=== PATIENT | female | born 1955 | race Caucasian/White ===

== ENCOUNTER 2016-08-20 11:26 | Inpatient (IN) | payer MEDICARE, MEDICAID ==
[~2016-08-20] VITALS: Ht 154.9 cm; Wt 58.4 kg
[2016-08-20 12:18] LABS: APPEARANCE CLOUDY (CLEAR); BACTERIA MANY /hpf (NONE SEEN); BILIRUBIN NEGATIVE (NEGATIVE); COLOR DK YELLOW (YELLOW); GLUCOSE NEGATIVE (NEGATIVE); KETONE SMALL mg/dL (NEGATIVE); LEUKOCYTE ESTERASE 1+ (NEGATIVE); NITRITE POSITIVE (NEGATIVE); PROTEIN 2+ mg/dL (NEGATIVE); RED CELLS - URINE 25-50 /hpf (0-5); UROBILINOGEN NORMAL (NORMAL); WHITE CELLS - URINE >50 /hpf (0-5)
[2016-08-20 15:21] LABS: HEMATOCRIT 34.8 % (36.0-48.0); MCH 32.3 pg (26.0-34.0); MCHC 34.5 g/dL (31.0-37.0); MCV 93.8 fL (80.0-100.0); PLATELET COUNT 293 10x3/uL (130-400); RBC 3.71 10x6/uL (4.00-5.40); RDW 15.1 % (11.5-14.5); WBC 27.7 10x3/uL (4.8-10.8)
[2016-08-20 15:37] LABS: ALBUMIN 3.1 g/dL (3.4-5.0); ANION GAP 16.7 mmol/L (8-16); BILIRUBIN - TOTAL 0.69 mg/dL (0.2-1.3); CALCIUM 8.6 mg/dL (8.5-10.1); CARBON DIOXIDE 23.7 mmol/L (21.0-32.0); CREATININE - SERUM 1.6 mg/dL (0.6-1.3); POTASSIUM - SERUM 3.4 mmol/L (3.5-5.1); PROTEIN - SERUM 6.1 g/dL (6.4-8.2)
[2016-08-20 15:50] LABS: EOSINOPHILS 1 % (0-7); LYMPHOCYTES 9 % (15-50); MONOCYTES 1 % (2-11); NEUTROPHILS 85 % (40-80); PLATELET ESTIMATE NORMAL
--- NOTE | 2016-08-20 17:56 | NUR ---
RECEIVED TO FLOOR VIA WHEELCHAIR WITH IV FLUIDS GOING TO LEFT HAND. DENIES NEEDS AT PRESENT TIME. SUPPER TRAY HERE AND STARTING TO EAT. LEVAQUIN IV ALSO INFUSING.
[2016-08-20] MEDS ORDERED: MOBIC7.5 MG PO ×2 (17:59→18:03)
[2016-08-20] MEDS ORDERED: TAMIFLU75 MG PO (17:59)
[2016-08-20] MEDS ORDERED: HYDROCODONE-APA1 TAB PO (18:00)
[2016-08-20] MEDS ORDERED: ATIVAN1 MG (18:01)
[2016-08-20] MEDS ORDERED: GABAPENTIN100 MG PO (18:02)
[2016-08-20] MEDS ORDERED: STRATTERA40 MG (18:03)
[2016-08-20] MEDS ORDERED: VALTREX1000 MG (18:03)
--- NOTE | 2016-08-20 18:31 | NUR ---
PT RESTING ON EDGE OF BED. BP 83/60. ALL OTHER VITALS STABLE. CALLED [employer] COUNTERPERSON DOCTOR AND WAITING FOR CALL BACK.
--- NOTE | 2016-08-20 19:38 | NUR ---
PT STATES SHE WAS ON TAMIFLU FOR FLU LIKE SYMPTOMS BUT TESTED NEGATIVE. NOTIFIED DOCTOR AND WILL RETEST PT AND CONTINUE TAMIFLU PREVIOUSLY PRESCRIBED SHE IS ON DAY 3/5 TAKING IT BID. WILL GOWN UP PRECAUTION UNTIL WE KNOW FOR SURE.
--- NOTE | 2016-08-20 20:00 | NUR ---
NEW ORDERS REC'D AND PLACED IN CHART. PT RESTING QUIETLY IN BED. DENIES ANY CURRENT NEEDS. WILL CONTINUE WITH NEW ORDERS.
[2016-08-20 21:00] VITALS: BP 91/55
[2016-08-20 21:08] VITALS: BP 91/55; BMI 15.8
[2016-08-21] VITALS (7 sets, daily range): BP systolic 81–102; BP diastolic 42–58; Ht 154.9 cm; Wt 58.4 kg
--- NOTE | 2016-08-21 04:59 | NUR ---
PT RESTING WITHOUT C/O OR DISTRESS NOTED. CALL LIGHT WITHIN REACH. WILL CONT TO MONITOR.
--- NOTE | 2016-08-21 07:00 | NUR ---
RECEIVED REPORT. ASSUMED CARE OF PATIENT. RESTING WITH EYES OPEN. ALERT/ORIENTED. RESP EVEN AND UNLABORED. NO DISTRESS. PATIENT REPORTS CHRONIC BACK PAIN, HOWEVER PATIENT STATES SHE FEELS BETTER TODAY.
--- NOTE | 2016-08-21 10:06 | NUR ---
REFUSED TAMIFLU AT THIS TIME. NO DISTRESS.
[2016-08-21 12:03] LABS: BASOPHILS 0 % (0.0-2.0); EOSINOPHILS 0 % (0-7); HEMATOCRIT 33.5 % (36.0-48.0); HEMOGLOBIN 11.3 g/dL (12-16); IMMATURE GRANULOCYTES 0.5 % (0-5); LYMPHOCYTES 4.4 % (15-50); MCH 31.9 pg (26.0-34.0); MCHC 33.7 g/dL (31.0-37.0); MCV 94.6 fL (80.0-100.0); MEAN PLATELET VOLUME 10.2 fL (7.4-10.4); NEUTROPHILS 89.1 % (40-80); PLATELET COUNT 270 10x3/uL (130-400); RBC 3.54 10x6/uL (4.00-5.40); RDW 15.3 % (11.5-14.5); WBC 22.2 10x3/uL (4.8-10.8)
--- NOTE | 2016-08-21 12:09 | NUR ---
MEDICATED FOR BACK PAIN AT THIS TIME. NO DISTRESS.
[2016-08-21 12:10] LABS: ANION GAP 12.3 mmol/L (8-16); CALCIUM 8.2 mg/dL (8.5-10.1); CARBON DIOXIDE 24.9 mmol/L (21.0-32.0); CREATININE - SERUM 1.4 mg/dL (0.6-1.3); POTASSIUM - SERUM 4.2 mmol/L (3.5-5.1)
--- NOTE | 2016-08-21 12:17 | NUR ---
MANUAL BP 102/58
[2016-08-21 13:40] LABS: % SATURATION 6 % (15-55); IRON 10 ug/dl (35-150); TOTAL IRON BIND CAPACITY 151 ug/dl (260-445); UNSAT IRON BIND CAPACITY 141 ug/dl (150-375)
--- NOTE | 2016-08-21 14:02 | NUR ---
SCDS APPLIED TO BILATERAL LOWER EXTREMITIES AND TELEMETRY APPLIED.
--- NOTE | 2016-08-21 18:41 | NUR ---
1814 20 GUAGE TO LEFT WRIST FOUND TO BE INFILTRATED AFTER PATIENT PULLED IV WHILE USING RESTROOM. 20 GAUGE REMOVED FROM LEFT WRIST, CATHETER TIP INTACT. 4X4 GAUZE APPLIED AND SECURED WITH TAPE. NO BLEEDING FROM SITE. 22 GAUGE IV PLACED TO RIGHT FOREARM X 1 STICK. GOOD BLOOD RETURN, EASY FLUSH. TAPED, DATED AND SECURED. IV ABX INFUSING AT THIS TIME. NO DISTRESS. CALL LIGHT WITHIN REACH.
--- NOTE | 2016-08-21 20:26 | NUR ---
RESTING IN BED WATCHING TV. ALERT ORIENTED CONVERSANT. DENIES NEEDS. NO ACUTE DISTRESS NOTED
--- NOTE | 2016-08-21 23:59 | NUR ---
PT LAYING IN BED EYES CLOSED NO DISTRESS OBSERVED CALL LIGHT IN REACH SRX2 BED LOW AND LOCKED WILL MONITOR
[2016-08-22 00:10] VITALS: BP 83/48
[2016-08-22 04:20] VITALS: BP 91/60
--- NOTE | 2016-08-22 07:00 | NUR ---
RECEIVED REPORT. ASSUMED CARE OF PATIENT. CALL LIGHT WITHIN REACH. RESTING WITH EYES OPEN, STATES SHE FEELS BETTER THIS MORNING. RESP EVEN AND UNLABORED. NO DISTRESS.
[2016-08-22 07:35] VITALS: BP 99/55
[2016-08-22 07:57] LABS: BASOPHILS 0.1 % (0.0-2.0); EOSINOPHILS 0.1 % (0-7); HEMATOCRIT 36.4 % (36.0-48.0); HEMOGLOBIN 12.3 g/dL (12-16); IMMATURE GRANULOCYTES 0.3 % (0-5); LYMPHOCYTES 5.3 % (15-50); MCHC 33.8 g/dL (31.0-37.0); MCV 94.8 fL (80.0-100.0); MEAN PLATELET VOLUME 10.9 fL (7.4-10.4); MONOCYTES 5.2 % (2-11); PLATELET COUNT 306 10x3/uL (130-400); RBC 3.84 10x6/uL (4.00-5.40); RDW 15.7 % (11.5-14.5); WBC 17.8 10x3/uL (4.8-10.8)
[2016-08-22 08:00] VITALS: BP 94/53
[2016-08-22 08:08] LABS: ANION GAP 14.5 mmol/L (8-16); CARBON DIOXIDE 24.5 mmol/L (21.0-32.0)
--- NOTE | 2016-08-22 09:38 | NUR ---
MEDICATED FOR PAIN AT THIS TIME. NO DISTRESS.
[2016-08-22 11:20] VITALS: BP 97/57
[2016-08-22 15:28] VITALS: BP 104/65
--- NOTE | 2016-08-22 16:47 | NUR ---
RESTING WELL IN BED WITH EYES OPEN. CALL LIGHT WITHIN REACH. DENIES NEEDS AT THIS TIME. NO ACUTE DISTRESS.
--- NOTE | 2016-08-22 19:18 | NUR ---
MEDICATED FOR PAIN AT THIS TIME. NO DISTRESS.
--- NOTE | 2016-08-22 19:30 | NUR ---
ASSESSMENT COMPLETE, DENIES NEEDS AT THIS TIME. HOB UP SR UP X2, C/L IN REACH. RESP UNLAB ON ROOM AIR, TELEMETRY SHOWING HR SR. WEARING BILAT SCDS TO LOWER LEGS, UP WITH MIN ASSIST. KINSEY WELL. CONTINUE TO MONITOR.
[2016-08-23] VITALS: BP 107/56
--- NOTE | 2016-08-23 00:13 | NUR ---
EYES CLOSED, RESP UNLAB WITH NO S/S OF ACUTE DISTRESS NOTED. C/L IN REACH.
[2016-08-23 06:27] LABS: BASOPHILS 0.2 % (0.0-2.0); EOSINOPHILS 0 % (0-7); HEMATOCRIT 34.6 % (36.0-48.0); HEMOGLOBIN 11.6 g/dL (12-16); IMMATURE GRANULOCYTES 0.6 % (0-5); LYMPHOCYTES 9.6 % (15-50); MCH 31.2 pg (26.0-34.0); MCHC 33.5 g/dL (31.0-37.0); MEAN PLATELET VOLUME 10.6 fL (7.4-10.4); MONOCYTES 11.7 % (2-11); NEUTROPHILS 77.9 % (40-80); PLATELET COUNT 316 10x3/uL (130-400); RBC 3.72 10x6/uL (4.00-5.40); RDW 15.3 % (11.5-14.5); WBC 14.8 10x3/uL (4.8-10.8)
[2016-08-23 06:52] LABS: CALC OSMOLALITY 279 mosm/kg (275-300); CARBON DIOXIDE 24.4 mmol/L (21.0-32.0); CHLORIDE - SERUM 104 mmol/L (98-107); CREATININE - SERUM 0.8 mg/dL (0.6-1.3); GLUCOSE 108 mg/dL (74-106); POTASSIUM - SERUM 3.5 mmol/L (3.5-5.1); SODIUM 138 mmol/L (136-145); UREA NITROGEN 21 mg/dL (7-18); eGFR NON AFRICAN AMERICAN 77 mL/min (90-120)
--- NOTE | 2016-08-23 07:22 | NUR ---
AM ROUNDING- PT LAYING IN BED ON BACK WITH EYES CLOSED RESTING. SCDS ARE ON. ON MONITOR SHOWING SR, HR 86. ON ROOM AIR. IV SEEN TO RIGHT FOREARM, SALINE LOCKED AND PATENT. PER REPORT FROM INSTRUCTIONAL PARAPROFESSIONAL NURSE, MAE PT IS UP AD ABDIRASHID AND ALERT AND ORIENTED. NO NEED AT CURRENT TIME. WILL CONTINUE TO MONITOR.
[2016-08-23 08:45] VITALS: BP 103/58
--- NOTE | 2016-08-23 12:11 | NUR ---
Patient Name: JONH HAILE Admission Status: ER Accout number: [id number] Admission Date: 08-20-2016 : 1955 Admission Diagnosis: Pyelnophritis Attending: YOLANDA Current LOS: 3 Anticipated DC Date: 08-23-2016 Planned Disposition: Home Primary Insurance: [employer] MEDICARE ADV Discharge Planning Comments: Cm met with patient to discuss dc plans/needs. Patient gave consent for cm to discuss dc plans. Patient reports she lives at home with her fianc . She reports she is independent in her care at home. She occasionally uses a walker for ambulatory aide due to chronic back problems. She denied use of community resources at home. She reports her fianc will be transporting her home at discharge. She denied discharge needs at this time. She feels discharging home is a safe discharge. Cm encouraged patient to contact cm if needs arise. Cm will continue to follow and assist as needed with dc plans. [employer]: Merle Gonzalez RN, CCM Is the patient Alert and Oriented? Yes * How many steps to enter\exit or inside your home? 2 * PCP Dr. Garay * Pharmacy [facility] * Preadmission Environment Home with Family * ADLs Independent * Equipment Cane * List name and contact numbers for known caregivers / representatives who currently or will assist patient after discharge: Sri Mccullough- [facility] - [phone] * Community resources currently utilized None * Additional services required to return to the preadmission environment? No * Can the patient safely return to the preadmission environment? Yes * Has this patient been hospitalized within the prior 30 days at any hospital? No
--- NOTE | 2016-08-23 12:22 | NUR ---
Important Medicare Message provided explained, and signed by the patient. Copy left for patient and signed form placed in patient's chart. Merle Gonzalez RN, CCM
[2016-08-23 13:14] VITALS: BP 93/55
[2016-08-23 17:04] VITALS: BP 115/73
--- NOTE | 2016-08-23 18:12 | NUR ---
PT SITTING UP IN BED REQUESTING SOMETHING FOR 9/10 BACK PAIN. GAVE PT PRN PAIN MEDICINE ORDERED. NO OTHER NEED AT CURRENT TIME. WILL CONTINUE TO MONITOR.
--- NOTE | 2016-08-23 19:30 | NUR ---
ASSESSMENT COMPLETE, DENIES NEEDS AT THIS TIME. IN BED, LYING SUPINE WITH HOB UP SR UP X2, C/L IN REACH. ON ROOM AIR, TELEMETRY IN PLACE SHOWING HR SR. UP AD ABDIRASHID W/O DIFF. WEARING BILAT SCDS TO LOWER LEGS, REMOVED, SKIN CHECKED FOR ANY ABNORMALITIES AND SCDS PUT BACK ON. KINSEY WELL. RIGHT FA SL INTACT WITH NO R/S NOTED AT SITE. CONTINUE TO MONITOR.
[2016-08-23 21:47] VITALS: BP 105/63
[2016-08-24 02:11] VITALS: BP 97/63
--- NOTE | 2016-08-24 04:22 | NUR ---
EYES CLOSED, RESP UNLAB WITH NO S/S OF ACUTE DISTRESS NOTED. C/L IN REACH. CONTINUE TO MONITOR.
[2016-08-24 05:29] VITALS: BP 121/67
[2016-08-24 06:24] LABS: BASOPHILS 0.4 % (0.0-2.0); EOSINOPHILS 0.2 % (0-7); HEMATOCRIT 38.5 % (36.0-48.0); HEMOGLOBIN 13.2 g/dL (12-16); IMMATURE GRANULOCYTES 1.1 % (0-5); LYMPHOCYTES 14.7 % (15-50); MCH 31.7 pg (26.0-34.0); MCHC 34.3 g/dL (31.0-37.0); MCV 92.5 fL (80.0-100.0); MEAN PLATELET VOLUME 10.1 fL (7.4-10.4); MONOCYTES 10.4 % (2-11); NEUTROPHILS 73.2 % (40-80); PLATELET COUNT 374 10x3/uL (130-400); RBC 4.16 10x6/uL (4.00-5.40); RDW 15.3 % (11.5-14.5); WBC 16.8 10x3/uL (4.8-10.8)
[2016-08-24 06:36] LABS: CALC OSMOLALITY 279 mosm/kg (275-300); CALCIUM 8.4 mg/dL (8.5-10.1); CARBON DIOXIDE 30.2 mmol/L (21.0-32.0); CHLORIDE - SERUM 103 mmol/L (98-107); CREATININE - SERUM 0.8 mg/dL (0.6-1.3); GLUCOSE 106 mg/dL (74-106); POTASSIUM - SERUM 3.5 mmol/L (3.5-5.1); SODIUM 140 mmol/L (136-145); eGFR NON AFRICAN AMERICAN 77 mL/min (90-120)
[2016-08-24 06:38] LABS: UREA NITROGEN 15 mg/dL (7-18)
--- NOTE | 2016-08-24 07:44 | NUR ---
AM ROUNDING- PT SITTING UP IN BED WITH EYES OPEN. CURRENTLY REQUESTING SOMETHING FOR PAIN. ON MONITOR SHOWING SR, HR 94. ON ROOM AIR. SCDS ARE ON. UP AD ABDIRASHID. IV SEEN TO RIGHT FOREARM SALINE LOCKED AND PATENT. PT IS ALERT AND ORIENTED. WILL SEE ORDERS FOR PRN MEDICATION FOR PAIN. WILL CONTINUE TO MONITOR.
[2016-08-24 08:45] VITALS: BP 107/58
--- NOTE | 2016-08-24 10:51 | NUR ---
LISSETH RN RESITED PTS IV BECAUSE OLD IV WAS LEAKING. 22G TO LEFT HAND X 1 STICK. PT TOLERATED WELL. OLD IV REMOVED WITH CATH TIP INTACT. WILL CONTINUE TO MONITOR.
[2016-08-24 11:59] VITALS: BP 104/64
[2016-08-24 12:17] LABS: FOLATE (FOLIC ACID) - SERUM 4.7 ng/mL (>3.0)
[2016-08-24 16:13] VITALS: BP 122/70
--- NOTE | 2016-08-24 18:32 | NUR ---
PT SITTING UP IN BED WITH EYES OPEN. DENIES ANY NEED AT THIS TIME. WILL CONTINUE TO MONITOR.
[2016-08-24 20:03] VITALS: BP 124/71
--- NOTE | 2016-08-24 23:41 | NUR ---
PT SITTING UP IN BED NO DISTRESS OBSERVED CALL LIGHT IN REACH SRX2 BED LOW AND LOCKED WILL MONITOR
[2016-08-25 00:14] VITALS: BP 110/68
[2016-08-25 05:07] VITALS: BP 121/69
--- NOTE | 2016-08-25 05:47 | NUR ---
PATIENT HAS BEEN STABLE AND SLEPT THROUGH THE NIGHT. REQUESTED NORCO WITH HER RESTORIL AT BEDTIME. NO NEEDS NOTED BY PATIENT.
[2016-08-25 05:48] LABS: BASOPHILS 0.5 % (0.0-2.0); EOSINOPHILS 0.5 % (0-7); HEMATOCRIT 34.2 % (36.0-48.0); HEMOGLOBIN 11.6 g/dL (12-16); IMMATURE GRANULOCYTES 1.3 % (0-5); LYMPHOCYTES 21.1 % (15-50); MCH 31.5 pg (26.0-34.0); MCHC 33.9 g/dL (31.0-37.0); MCV 92.9 fL (80.0-100.0); MONOCYTES 12.3 % (2-11); NEUTROPHILS 64.3 % (40-80); PLATELET COUNT 414 10x3/uL (130-400); RBC 3.68 10x6/uL (4.00-5.40); RDW 15.3 % (11.5-14.5)
[2016-08-25 05:58] LABS: CALC OSMOLALITY 286 mosm/kg (275-300); CALCIUM 8.3 mg/dL (8.5-10.1); CARBON DIOXIDE 30.6 mmol/L (21.0-32.0); CHLORIDE - SERUM 107 mmol/L (98-107); CREATININE - SERUM 0.7 mg/dL (0.6-1.3); GLUCOSE 92 mg/dL (74-106); POTASSIUM - SERUM 3.4 mmol/L (3.5-5.1); SODIUM 144 mmol/L (136-145); UREA NITROGEN 13 mg/dL (7-18); eGFR NON AFRICAN AMERICAN 90 mL/min (90-120)
--- NOTE | 2016-08-25 06:50 | NUR ---
RECEIVED REPORT FROM DIRECTOR GLOBAL DEVELOPMENT NURSE, MEGAN VILLAGRAN. PT IN BED, SLEEPING AT THIS TIME. SCD'S ON BILAT, CALL LIGHT IN REACH, NAD NOTED, WILL CONTINUE TO MONITOR.
[2016-08-25 08:25] VITALS: BP 120/68
--- NOTE | 2016-08-25 08:34 | NUR ---
ADMINISTERED MORNING MEDICATIONS, AND HUNG IVPB LEVAQUIN. PT IN BED, DENIES ANY NEEDS AT THIS TIME. CALL LIGHT IN REACH, NAD NOTED, WILL CONTINUE TO MONITOR.
[2016-08-25] MEDS ORDERED: FLORAJEN3 CAPS460 MG PO (11:06)
[2016-08-25] MEDS ORDERED: LEVAQUIN500 MG PO ×2 (11:06→14:40)
[2016-08-25] MEDS ORDERED: ATIVAN1 MG PO (11:09)
[2016-08-25 12:49] VITALS: BP 132/67
--- NOTE | 2016-08-25 15:00 | NUR ---
PROVIDED VERBAL AND WRITTEN DISCHARGE ORDERS TO PT AND FAMILY, BOTH VERBALIZED UNDERSTANDING REGARDING DISCHARGE. D/C L HAND IV, TIP INTACT. WILL CALL FOR WHEELCHAIR. 1505- PT LEFT UNIT VIA WHEELCHAIR.
== END 2016-08-25 15:11 | disposition home or self-care (01) | DRG 690 ==
LOC: OBSVTIME → D.ER 11:26 → D.M2 16:08 → OBSVTIME 16:40 → D.M2 16:40 → D.ER 16:40 → D.M2 19:50
PROVIDERS: Emergency Medicine; Physician Assistant; ADMIT Family Medicine Adult Medicine
DX: N10 Acute pyelonephritis (principal); F17.203 Nicotine dependence unspecified, with withdrawal; B96.20 Unspecified Escherichia coli [E. coli] as the cause of diseases classified elsewhere; N17.9 Acute kidney failure, unspecified; I95.9 Hypotension, unspecified; D64.9 Anemia, unspecified; M51.36 Other intervertebral disc degeneration, lumbar region